=== PATIENT | male | born 1965 | race Caucasian/White ===

== ENCOUNTER 2016-06-06 05:23 | Emergency (ER) | payer MEDICAID ==
[~2016-06-06] VITALS: Ht 170.2 cm; Wt 62.5 kg
[2016-06-06 05:26] VITALS: Ht 170.2 cm; Wt 62.5 kg
[2016-06-06] MEDS ORDERED: KETOROLAC 60 MG INJ IM STA (06:39)
--- NOTE | 2016-06-06 07:16 | RADRPT ---
PROCEDURE: Bilateral shoulder x-rays CLINICAL INDICATION: bilateral shoulder blade pain TECHNIQUE: 3 separate views of each shoulder were obtained including internal rotation, external r otation, and scapular Y-view. COMPARISON: None FINDINGS: Right shoulder: No fracture or dislocation is seen. No lytic or blastic bony lesion. No definite abnormal calcification. No significant degenerative change. Left shoulder: No fracture or dislocation is seen. There are 2 small calcifications seen on the ex ternally rotated view in or adjacent to the rotator cuff insertion site, the larger measuring 2 mm. No lytic or blastic bony lesion is seen. No significant degenerative change. IMPRESSION: Unremarkable right shoulder. No definite acute abnormality of either shoulder. Small calcification s overlying the rotator cuff insertion site on the left which could be due to hydroxyapatite deposit ion disease or prior trauma. Merary Christie Physician Date Time Electronically viewed and signed by Merary Christie Physician on 06/06/2016 07:16 JORGE/
[2016-06-06] MEDS ORDERED: IBUP-1542 PO (07:45)
[2016-06-06] MEDS ORDERED: CYCL-319 PO (07:45)
--- NOTE | 2016-06-06 11:38 | ERD ---
ER Documentation Chief Complaint Date/Time DATE: 06/06/16 TIME: 11:26 Chief Complaint chronic bilateral shoulder pain and right leg pain x 3 years HPI 51-year-old male with a past medical history of gastritis presents to the ED complaining of bilateral shoulder pain and left knee pain that started intermittently 3 years ago. States that the back pain is worse with movement and it radiates down to the left leg. Describes pain as achy and rates it a 8 out of 10. States that he is tried taking Tylenol at home with minimal relief of his pain. 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 Denies any fever, chills, abdominal pain, nausea, vomiting, shortness of breath. Denies any leg swelling, skin irritation. ROS All systems reviewed and are negative except as per history of present illness. Medications Home Meds Active Scripts Cyclobenzaprine Hcl* (Cyclobenzaprine Hcl*) 10 Mg Tablet, 10 MG PO TID, #15 TAB Prov:EDGARDO BROWN PA-C 06/06/16 Ibuprofen* (Motrin*) 600 Mg Tab, 600 MG PO Q6, #30 TAB take with food Prov:EDGARDO BROWN PA-C 06/06/16 Allergies Allergies: Coded Allergies: No Known Allergy (Unverified , 06/06/16) PMhx/Soc Medical and Surgical Hx: pt denies Surgical Hx History of Surgery: No Anesthesia Reaction: No Hx Neurological Disorder: No Hx Respiratory Disorders: No Hx Cardiac Disorders: No Hx Psychiatric Problems: No Hx Miscellaneous Medical Probl: Yes (gastritis ) Hx Alcohol Use: No Hx Substance Use: No Hx Tobacco Use: Yes Smoking Status: Current every day smoker Physical Exam Vitals Vital Signs Date Time Temp Pulse Resp B/P Pulse Ox O2 Delivery O2 Flow Rate FiO2 06/06/16 05:26 97.8 63 20 106/63 100 Physical Exam Const: [id number], well-nourished. In no acute distress. Head: Atraumatic, normocephalic Eyes: Normal Conjunctiva without injection ENT: Normal external ear, nose and mouth. Neck: Full range of motion. No meningismus. Resp: Clear to auscultation bilaterally. No wheezing, rhonchi, rales, or crackles. No accessory muscle use. No retractions. Cardio: Regular rate and rhythm, no murmurs Skin: No petechiae or rashes Back: No midline tenderness. Tenderness to palpation of the left lumbar muscles. No CVA tenderness. Positive straight leg test. Ext: No cyanosis, or edema. Tenderness to palpation of the posterior bilateral scapula. Cap refill less than 2 seconds. Distal pulses intact bilaterally. Neur: Awake and alert. Normal gait and coordination. Muscle strength 5/5. Sensation intact bilaterally. Psych: Normal Mood and Affect Results 24 hrs Current Medications Medications (Trade) Dose Ordered Sig/Kelvin Route PRN Reason Start Time Stop Time Status Last Admin Dose Admin Ketorolac Tromethamine (Toradol) 60 mg ONCE STAT IM 06/06/16 06:39 06/06/16 06:40 DC 06/06/16 06:45 Procedures/MDM This is a 51-year-old male with a past medical history of gastritis presents the ED complaining of bilateral shoulder and left leg pain deriving from his back. Patient is afebrile and nontoxic-appearing. Patient had a positive straight leg test here in the ED. Patient likely has sciatica. 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 PROCEDURE: Bilateral shoulder x-rays CLINICAL INDICATION: bilateral shoulder blade pain TECHNIQUE: 3 separate views of each shoulder were obtained including internal rotation, external rotation, and scapular Y-view. COMPARISON: None FINDINGS: Right shoulder: No fracture or dislocation is seen. No lytic or blastic bony lesion. No definite abnormal calcification. No significant degenerative change. Left shoulder: No fracture or dislocation is seen. There are 2 small calcifications seen on the externally rotated view in or adjacent to the rotator cuff insertion site, the larger measuring 2 mm. No lytic or blastic bony lesion is seen. No significant degenerative change. IMPRESSION: Unremarkable right shoulder. No definite acute abnormality of either shoulder. Small calcifications overlying the rotator cuff insertion site on the left which could be due to hydroxyapatite deposition disease or prior trauma. Patient's extremity symptoms have stabilized while they have been evaluated in the department and are appropriate for outpatient follow up. No evidence of fractures, dislocations, compartment syndrome, neurologic injury, vascular injury, open joint, open fracture, tendon laceration, septic arthritis, osteomyelitis, DVT, foreign body, or other emergent conditions. Patient is ambulating here in the ED without difficulty. Denies saddle anesthesia, numbness or tingling, urine or bowel incontinence, weakness. Low suspicion for cauda equina syndrome, cord compression, nephrolithiasis, aortic aneurysm, aortic dissection, epidural abscess, spinal hematoma, malignancy, pyelonephritis , degenerative disc disease, spinal stenosis, or other emergent conditions. Discharge medications: Flexeril, ibuprofen Follow up with primary care physician in 1-2 days. Instructed patient to return to the ED sooner for any worsening symptoms. Patient's questions were answered. Patient understood and agreed with discharge plan. Patient discharged stable. Departure Diagnosis: Primary Impression: Sciatica Laterality: left Qualified Code: M54.32 - Sciatica of left side Additional Impression: Chronic pain of both shoulders Condition: Stable Patient Instructions: Shoulder Problems, Back Pain W/ Sciatica, Shoulder Pain ( Uncertain Cause) Referrals: [facility] YOU HAVE RECEIVED A MEDICAL SCREENING EXAM AND THE RESULTS INDICATE THAT YOU DO NOT HAVE A CONDITION THAT REQUIRES URGENT TREATMENT IN THE EMERGENCY DEPARTMENT. FURTHER EVALUATION AND TREATMENT OF YOUR CONDITION CAN WAIT UNTIL YOU ARE SEEN IN YOUR DOCTORS OFFICE WITHIN THE NEXT 1-2 DAYS. IT IS YOUR RESPONSIBILITY TO MAKE AN APPOINTMENT FOR FOLOW-UP CARE. IF YOU HAVE A PRIMARY DOCTOR --you should call your primary doctor and schedule an appointment IF YOU DO NOT HAVE A PRIMARY DOCTOR YOU CAN CALL OUR PHYSICIAN REFERRAL HOTLINE AT IF YOU CAN NOT AFFORD TO SEE A PHYSICIAN YOU CAN CHOSE FROM THE FOLLOWING [facility] [address] [facility]. [facility] [address] [facility]. [facility] [address] [facility]. [facility] [address] [facility] [address], [facility]. [facility]. [address] [facility] YOU HAVE RECEIVED A MEDICAL SCREENING EXAM AND THE RESULTS INDICATE THAT YOU DO NOT HAVE A CONDITION THAT REQUIRES URGENT TREATMENT IN THE EMERGENCY DEPARTMENT. FURTHER EVALUATION AND TREATMENT OF YOUR CONDITION CAN WAIT UNTIL YOU ARE SEEN IN YOUR DOCTORS OFFICE WITHIN THE NEXT 1-2 DAYS. IT IS YOUR RESPONSIBILITY TO MAKE AN APPOINTMENT FOR FOLOW-UP CARE. IF YOU HAVE A PRIMARY DOCTOR --you should call your primary doctor and schedule and appointment IF YOU DO NOT HAVE A PRIMARY DOCTOR YOU CAN CALL OUR PHYSICIAN REFERRAL HOTLINE AT . IF YOU CAN NOT AFFORD TO SEE A PHYSICIAN YOU CAN CHOSE FROM THE FOLLOWING [facility], [facility] INSTITUTIONS: [facility] [address] [place] [address] [facility] [address] [place] [address] [facility] [address] [place] [address] [facility] URGENT CARE/SPECIALTIES Additional Instructions: FOLLOW UP WITH YOUR PRIMARY CARE PHYSICIAN TOMORROW. Return to this facility if you are not improving as expected. EDGARDO BROWN PA-C Jun 06, 2016 11:37
== END 2016-06-06 07:50 | disposition home or self-care (01) ==
LOC: FTE 05:23
DX: M54.32 Sciatica, left side (principal); M25.511 Pain in right shoulder; F17.210 Nicotine dependence, cigarettes, uncomplicated
CPT/HCPCS: 73030; J1885; 96372

== ENCOUNTER 2016-06-23 03:24 | Emergency (ER) | payer MEDICAID ==
[~2016-06-23] VITALS: Ht 170.2 cm; Wt 63.8 kg
[~2016-06-23 03:24] MED LIST: CYCL-319 PO; IBUP-1542 PO
[2016-06-23 03:29] VITALS: Ht 170.2 cm; Wt 63.8 kg
[2016-06-23] MEDS ORDERED: HYDROCODONE/APAP (5/325) TAB PO STA (04:46)
[2016-06-23] MEDS ORDERED: ONDANSETRON (ODT) 4 MG TAB ODT STA (04:46)
[2016-06-23] MEDS ORDERED: HYDR-906 PO ×2 (05:09→05:36)
--- NOTE | 2016-06-23 05:09 | ERD ---
ER Documentation Chief Complaint Date/Time DATE: 06/23/16 TIME: 05:07 Chief Complaint lowe back pain x 3 days. states was carrying heavy stuff HPI This is a 51-year-old male presenting to the emergency department complaining of bilateral flank pain that radiates down to his abdomen since last . Patient describes the pain waxing and waning, he states that the pain currently is around moderate severity however it becomes more severe at times. Patient states that the pain was excruciating earlier today and almost made him cry. He describes the pain as inside not in the muscular region or the bone. Patient denies any nausea, vomiting, diarrhea, dysuria or hematuria. He has not taken any medications for this. Patient denies chest pain or shortness of breath ROS All systems reviewed and are negative except as per history of present illness. Medications Home Meds Active Scripts Hydrocodone/Acetaminophen ([place]hee 5-325 Tablet) 1 Each Tablet, 1 TAB PO Q6H Y for PAIN, #20 TAB Prov:LUIS POTTS PA-C 06/23/16 Cyclobenzaprine Hcl* (Cyclobenzaprine Hcl*) 10 Mg Tablet, 10 MG PO TID, #15 TAB Prov:EDGARDO BROWN PA-C 06/06/16 Ibuprofen* (Motrin*) 600 Mg Tab, 600 MG PO Q6, #30 TAB take with food Prov:EDGARDO BROWN PA-C 06/06/16 Allergies Allergies: Coded Allergies: No Known Allergy (Unverified , 06/23/16) PMhx/Soc Medical and Surgical Hx: pt denies Medical Hx, pt denies Surgical Hx History of Surgery: No Anesthesia Reaction: No Hx Neurological Disorder: No Hx Respiratory Disorders: No Hx Cardiac Disorders: No Hx Psychiatric Problems: No Hx Miscellaneous Medical Probl: Yes (gastritis ) Hx Alcohol Use: Yes (occassional) Hx Substance Use: No Hx Tobacco Use: Yes Smoking Status: Current some day smoker Physical Exam Vitals Vital Signs Date Time Temp Pulse Resp B/P Pulse Ox O2 Delivery O2 Flow Rate FiO2 06/23/16 03:29 97.8 57 20 134/72 100 Physical Exam GENERAL: well-developed/well-nourished, in no apparent distress, non-toxic appearing HENT: NC/AT, moist mucous membranes EYES: Conjunctiva normal NECK: Supple, no lymphadenopathy PULM: CTA bilaterally, no rales, rhonchi, or wheezing heard CV: Normal S1S2, RRR, good capillary refill GI: Soft, non-distended, non-tender to palpation Normal bowel sounds, no masses or organomegaly felt on exam No gross peritonitis, no bruits Negative Rovsing, negative Shields, negative McBurney's point, Negative CVAT BACK: No masses, nontender to palpation of the spine midline, nontender in EXT: No clubbing, cyanosis, or edema NEURO: Alert and Orientated SKIN: Intact, normal turgor PSYCH: Normal mood and mentation Result Diagram: 06/23/1610 06/23/16 0510 Results 24 hrs Laboratory Tests Test 06/23/16 05:10 Alanine Aminotransferase (ALT/SGPT) 21IU/L Albumin 4.5g/dl Albumin/Globulin Ratio 1.40 Alkaline Phosphatase 80IU/L Anion Gap 16 Aspartate Amino Transf (AST/SGOT) 22IU/L Basophils # 0.010^3/ul Basophils % 0.2% Blood Urea Nitrogen 14mg/dl Calcium Level 9.4mg/dl Carbon Dioxide Level 33mmol/L Chloride Level 102mmol/L Creatinine 0.80mg/dl Direct Bilirubin 0.00mg/dl Eosinophils # 0.310^3/ul Eosinophils % 4.8% Globulin 3.20g/dl Glucose Level 98mg/dl Hematocrit 42.3% Hemoglobin 14.8g/dl Indirect Bilirubin 0.3mg/dl Lipase 99U/L Lymphocytes # 1.410^3/ul Lymphocytes % 23.3% Mean Corpuscular Hemoglobin 36.3pg Mean Corpuscular Hemoglobin Concent 35.0g/dl Mean Corpuscular Volume 103.7fl Mean Platelet Volume 9.7fl Monocytes # 0.510^3/ul Monocytes % 8.0% Neutrophils # 3.710^3/ul Neutrophils % 63.4% Nucleated Red Blood Cells # 0.010^3/ul Nucleated Red Blood Cells % 0.0/100WBC Platelet Count 18924^3/UL Potassium Level 3.7mmol/L Red Blood Count 4.0810^6/ul Red Cell Distribution Width 12.7% Sodium Level 147mmol/L Total Bilirubin 0.3mg/dl Total Protein 7.7g/dl Urine Bilirubin NEGATIVE Urine Clarity CLEAR Urine Color LT. YELLOW Urine Glucose NEGATIVE% Urine Hemoglobin TRACE Urine Ketones NEGATIVE Urine Leukocyte Esterase NEGATIVE Urine Microscopic RBC 0-2/HPF Urine Microscopic WBC NONE SEEN/HPF Urine Nitrite NEGATIVE Urine Specific Butler 1.020 Urine Total Protein NEGATIVE Urine Urobilinogen 0.2 E.U./dL Urine pH 6.0 White Blood Count 5.910^3/ul Current Medications Medications (Trade) Dose Ordered Sig/Kelvin Route PRN Reason Start Time Stop Time Status Last Admin Dose Admin Acetaminophen/ Hydrocodone Bitart ([place] (5/325)) 2 tab ONCE STAT PO 06/23/16 04:46 06/23/16 04:48 DC 06/23/16 04:56 Ondansetron HCl (Zofran Odt) 4 mg ONCE STAT ODT 06/23/16 04:46 06/23/16 04:48 DC 06/23/16 04:54 Procedures/MDM This is a 51-year-old male presenting to the emergency department complaining of bilateral flank pain that radiates down to his abdomen since last . Patient was evaluated here last week for bilateral shoulder pain and lumbar pain. I believe patient think pain is likely due to a strain and muscle spasm. On examination patient was nontender to palpation in the spine, he was ambulating well. patient was describing the pain as more inside, therefore a CT of the abdomen and pelvis without contrast was done to rule out nephrolithiasis or other acute pathology. The CT was read by radiologist: 1. No CT evidence for obstructive uropathy or renal calculi. 2. Moderately dilated distal esophagus. 3. Retained stool without gross bowel obstruction. 4. No CT evidence for appendicitis. 5. Nonspecific scrotal calcification. 6. Trace pelvic free fluid. I have discussed these findings with the patient, I discussed that he needs to follow-up with a primary care physician on Saturday for the dilated distal esophagitis. Patient denies chest pain or shortness of breath. in the ED patient was given 2 tablets of Oka[place], patient had some relief. Lab work was done, CBC did not show any evidence o significant anemia or leukocytosis. CMP was unremarkable. UA was negative Patient was given a short course of O[place] with strict precautions to follow-up with a primary care physician in on Saturday and to return to the ER for any worsening signs or symptoms. Patient understands and agrees with this plan Departure Diagnosis: Primary Impression: Esophageal dilatation Additional Impression: Lumbar strain Condition: Stable LUIS POTTS PA-C Jun 23, 2016 05:09
[2016-06-23 05:19] LABS: ADD SCAN DIFF NO
[2016-06-23 05:21] LABS: ADD UMIC YES; URINE BILIRUBIN (Dip) NEGATIVE (NEGATIVE); URINE BLOOD (Dip) TRACE (NEGATIVE); URINE COLOR LT. YELLOW (YELLOW); URINE GLUCOSE (Dip) NEGATIVE (NEGATIVE); URINE KETONES (Dip) NEGATIVE (NEGATIVE); URINE LEUKOCYTE ESTERASE (Dip) NEGATIVE (NEGATIVE); URINE NITRITE (Dip) NEGATIVE (NEGATIVE); URINE TOTAL PROTEIN (Dip) NEGATIVE (NEGATIVE); URINE UROBILINOGEN (Dip) 0.2 E.U./dL (0.1-1.0)
[2016-06-23 05:22] LABS: BASOPHILS % 0.2 % (0.0-2.0); EOSINOPHILS # 0.3 10^3/ul (0.0-0.5); EOSINOPHILS % 4.8 % (0.0-7.0); HEMATOCRIT 42.3 % (42.0-52.0); HEMOGLOBIN 14.8 g/dl (14.0-18.0); LYMPHOCYTES # 1.4 10^3/ul (0.8-2.9); LYMPHOCYTES % 23.3 % (15.0-51.0); MEAN CORPUSCULAR HEMOGLOBIN 36.3 pg (29.0-33.0); MEAN CORPUSCULAR VOLUME 103.7 fl (82.0-101.0); MEAN PLATELET VOLUME 9.7 fl (7.4-10.4); MONOCYTE # 0.5 10^3/ul (0.3-0.9); NEUTROPHIL # 3.7 10^3/ul (1.6-7.5); NEUTROPHILS % 63.4 % (39.0-77.0); PLATELET COUNT 207 10^3/UL (140-415); RED BLOOD COUNT 4.08 10^6/ul (4.70-6.10); RED CELL DISTRIBUTION WIDTH 12.7 % (11.5-14.5); WHITE BLOOD COUNT 5.9 10^3/ul (4.8-10.8)
--- NOTE | 2016-06-23 05:25 | RADRPT ---
PROCEDURE: CT ABDOMEN/PELVIS WITHOUT CONTRAST CLINICAL INDICATION: 51-year-old male with bilateral flank pain. TECHNIQUE: The study was performed utilizing a [employer] VCT 64-slice CT scanner. Direct axia l sections were obtained through the abdomen and pelvis without the use of intravenous contrast mate rial. Sagittal and coronal reformations were obtained. Automated exposure control and iterative sarita nstruction techniques were utilized for this examination. The [facility] CTD/vol = 5.0 mGy; Total Exam DLP = 304.5 mGy-cm. COMPARISON: None. FINDINGS: The lung bases are unremarkable. There is no evidence for significant pleural effusion. The liver has a normal size and contour without focal areas of abnormal density. No intrahepatic nor extrahepa tic biliary ductal dilatation is seen. The gallbladder demonstrates no wall thickening nor perichole cystic fluid. No biliary stones are evident. The pancreas is without areas of abnormal attenuation. The spleen is identified and has a normal size without abnormal density. The adrenal glands are unr emarkable. The kidneys are without abnormal density. No hydroureteronephrosis nor nephroureterolithi asis is evident. The urinary bladder contains a small of urine. There is moderate dilatation of the distal esophagus with air-fluid level. There is retained stool within the colon without gross bowel obstruction. The appendix is visualized and is without abnormal thickening or surrounding inflammato ry reaction. The prostate is not enlarged. There is minimal pelvic free fluid. There is a prominent scrotal calcific density measuring 10 x 12 mm on axial image 3-196. The aortoiliac vessels are without aneurysmal dilatation. The osseous structures are intact. IMPRESSION: 1. No CT evidence for obstructive uropathy or renal calculi. 2. Moderately dilated distal esophagus. 3. Retained stool without gross bowel obstruction. 4. No CT evidence for appendicitis. 5. Nonspecific scrotal calcification. 6. Trace pelvic free fluid. .Stewart Valdovinos MD, Date Time Electronically viewed and signed by .Stewart Valdovinos MD, MD on 06/23/2016 05:25 .M/
[2016-06-23 05:36] LABS: URINE RBCS 0-2 /HPF (0)
[2016-06-23 05:45] LABS: ALBUMIN 4.5 g/dl (3.3-4.9)
[2016-06-23 05:46] LABS: POTASSIUM 3.7 mmol/L (3.5-5.1)
[2016-06-23 05:48] LABS: ALBUMIN/GLOBULIN RATIO 1.4; BILIRUBIN,INDIRECT 0.3 mg/dl (0-1.1); BILIRUBIN,TOTAL 0.3 mg/dl (0.2-1.3); CREATININE 0.8 mg/dl (0.61-1.24); TOTAL PROTEIN 7.7 g/dl (6.1-8.1)
[2016-06-23 05:49] LABS: CALCIUM 9.4 mg/dl (8.4-10.2)
[2016-06-23 06:02] VITALS: BP 123/69; PULSE 90; RESP 16
== END 2016-06-23 06:05 | disposition home or self-care (01) ==
LOC: FTE 03:24
DX: K22.8 Other specified diseases of esophagus (principal); S39.012A Strain of muscle, fascia and tendon of lower back, initial encounter; F17.210 Nicotine dependence, cigarettes, uncomplicated; X50.0XXA Overexertion from strenuous movement or load, initial encounter; Y92.9 Unspecified place or not applicable
CPT/HCPCS: 74176; 80053; 81001; 83690; 85025; Z7502; Z7610; 81003

== ENCOUNTER 2016-11-27 09:23 | Emergency (ER) | payer BC, OTHER ==
[~2016-11-27] VITALS: Ht 165.1 cm; Wt 72.0 kg
[~2016-11-27 09:23] MED LIST changes: +HYDR-906 PO
[2016-11-27 09:26] VITALS: Ht 165.1 cm; Wt 72.0 kg
--- NOTE | 2016-11-27 09:38 | ERD ---
ER Documentation Chief Complaint Date/Time DATE: 11/27/16 TIME: 09:37 Chief Complaint RIGHT ELBOW PAIN, FELL FROM LADDER HPI Patient is a 51-year-old male who has right elbow pain and lower back pain after he fell from a ladder landing on his right elbow. He denies any head injury or KO. He is complaining of swelling and pain to the right elbow that is worse with movement. he took something for pain but is not sure what the name of it is. No neck pain. No numbness or tingling. He is ambulatory. No bowel or bladder incontinence. ROS All systems reviewed and are negative except as per history of present illness. Medications Home Meds Active Scripts Ibuprofen* (Motrin*) 800 Mg Tab, 800 MG PO Q6, #30 TAB Prov:SHILO FLOYD PA-C 11/27/16 Hydrocodone/Acetaminophen (Keaton 5-325 Tablet) 1 Each Tablet, 1 TAB PO Q6H Y for PAIN, #20 TAB Prov:SHILO FLOYD PA-C 11/27/16 Hydrocodone/Acetaminophen (Ke[place] 5-325 Tablet) 1 Each Tablet, 1 TAB PO Q6H Y for PAIN, #20 TAB Prov:LUIS POTTS PA-C 06/23/16 Cyclobenzaprine Hcl* (Cyclobenzaprine Hcl*) 10 Mg Tablet, 10 MG PO TID, #15 TAB Prov:EDGARDO BROWN PA-C 06/06/16 Ibuprofen* (Motrin*) 600 Mg Tab, 600 MG PO Q6, #30 TAB take with food Prov:EDGARDO BROWN PA-C 06/06/16 Allergies Allergies: Coded Allergies: No Known Allergy (Unverified , 06/23/16) PMhx/Soc Medical and Surgical Hx: pt denies Medical Hx, pt denies Surgical Hx History of Surgery: No Anesthesia Reaction: No Hx Neurological Disorder: No Hx Respiratory Disorders: No Hx Cardiac Disorders: No Hx Psychiatric Problems: No Hx Miscellaneous Medical Probl: Yes (gastritis ) Hx Alcohol Use: Yes (occassional) Hx Substance Use: No Hx Tobacco Use: Yes Smoking Status: Current every day smoker FmHx Family History: No diabetes Physical Exam Vitals Vital Signs Date Time Temp Pulse Resp B/P Pulse Ox O2 Delivery O2 Flow Rate FiO2 11/27/16 09:26 98.1 60 20 111/58 99 Physical Exam INITIAL VITAL SIGNS: Reviewed by me GENERAL: Awake, alert and oriented x 4, well appearing, nontoxic, speaking in full sentences. No acute distress HEAD: Atraumatic NECK: Supple. No masses. Full range of motion. No meningismus. No midline tenderness. RESPIRATORY: Clear to auscultation bilaterally. Symmetric chest wall rise. No wheezing or rales. No accessory muscle use. CV: Regular rate and rhythm. No murmurs, rubs, or gallops. ABDOMEN: Soft, non-distended. Nontender. Negative Logan. Negative McBurneys point tenderness. No CVA tenderness bilaterally. No guarding. No rebound. EXTREMITIES: No clubbing or cyanosis. No edema. Moving all extremities normally. Posterior right elbow has significant edema and superficial nonbleeding abrasion, limited range of motion in the elbow secondary to pain, no bony abnormalities, sensation to light touch is intact BACK: No midline tenderness to palpation. No step-offs. Sensation to light touch is intact. Ambulatory Results 24 hrs Current Medications Medications (Trade) Dose Ordered Sig/Kelvin Route PRN Reason Start Time Stop Time Status Last Admin Dose Admin Diphtheria/ Tetanus/Acell Pertussis (Adacel) 0.5 ml ONCE ONCE IM* 11/27/16 10:00 11/27/16 10:01 DC 11/27/16 09:41 Acetaminophen/ Hydrocodone Bitart (Ke[place] (5/325)) 1 tab ONCE ONCE PO 11/27/16 10:00 11/27/16 10:01 DC 11/27/16 09:40 Procedures/MDM Patient presents with low back pain and right elbow pain after mechanical fall from ladder. Patients is alert, oriented, well appearing, and in no distress with normal vital signs. There is no fever, tachycardia, or tachypnea. He is neurovascularly intact and ambulatory. He was given Keaton for pain control. He was given a tetanus vaccination. X-rays were ordered. X-ray shows comminuted fractures through the olecranon. Lumbar spine x-ray negative. Patient was placed in a sling and long-arm posterior splint. He was given copy of x-ray and CD with images, he was given prescription for pain medication and outpatient referral to orthopedics. Patient counseled regarding my diagnostic impression and care plan. Prior to discharge all questions answered. Pt agrees with treatment plan and understands strict return precautions. Pt is instructed to follow up with primary care provider within 24-48 hours. Precautionary instructions provided including instructions to return to the ER if not improving or for any worsening or changing symptoms or concerns. Departure Diagnosis: Primary Impression: Elbow fracture Additional Impression: Back pain Condition: Stable SHILO FLOYD PA-C Nov 27, 2016 09:38
[2016-11-27] MEDS ORDERED: HYDROCODONE/APAP (5/325) TAB PO ONE (10:00)
[2016-11-27] MEDS ORDERED: DIPHTH/TET/ACEL PERTUSS (ADULT) 0.5 ML VIAL IM* ONE (10:00)
--- NOTE | 2016-11-27 10:24 | RADRPT ---
PROCEDURE: XR Elbow 2 Views. CLINICAL INDICATION: Elbow pain and trauma. TECHNIQUE: AP and lateral views of the right elbow performed. COMPARISON: None. FINDINGS: Comminuted, mildly displaced fracture through the olecranon is identified. The remaining osseous st ructures appear grossly intact. No destructive bony lesions are observed. Interosseous spaces are grossly preserved. Questionable small joint effusion is observed. Soft tissue swelling is seen ove r the posterior aspect of the elbow. IMPRESSION: Comminuted fracture through the olecranon. Questionable small joint effusion. Soft tissue swelling over the posterior aspect of the elbow. If there is high clinical suspicion for additional traumatic injury, further evaluation with CT shou ld be considered. RPTAT: AA .Binu Busby MD, Date Time Electronically viewed and signed by .Binu Busby MD, MD on 11/27/2016 10:24 .P/
--- NOTE | 2016-11-27 10:25 | RADRPT ---
PROCEDURE: XR Lumbar Spine 2 Views. CLINICAL INDICATION: Low back pain and trauma. TECHNIQUE: Lumbar spine study including AP and lateral views was performed. COMPARISON: No prior studies are available for comparison. FINDINGS: Straightening of the normal lordosis is observed. No fractures or destructive bony lesions are obs erved. Intervertebral disk heights appear normal. Mild anterior osteophytosis is identified from L 3-L5. Facet arthrosis is noted from L4-S1. Soft tissues surrounding the spine appear normal. IMPRESSION: No visualized traumatic injury. Straightening of the normal lordosis. This may be positional in nature. Mild degenerative disk disease from L3-L5. Facet arthrosis in the lower lumbar spine. If there is high clinical suspicion for traumatic injury, further evaluation with CT should be consi dered. RPTAT: AA .Binu Busby MD, Date Time Electronically viewed and signed by .Binu Busby MD, on 11/27/2016 10:25 .P/
[2016-11-27] MEDS ORDERED: HYDR-906 PO (10:27)
[2016-11-27] MEDS ORDERED: IBUP800T25 PO (10:27)
== END 2016-11-27 11:02 | disposition home or self-care (01) ==
LOC: FTE 09:23
DX: S52.021A Displaced fracture of olecranon process without intraarticular extension of right ulna, initial encounter for closed fracture (principal); S39.92XA Unspecified injury of lower back, initial encounter; F17.210 Nicotine dependence, cigarettes, uncomplicated; W11.XXXA Fall on and from ladder, initial encounter; Y92.9 Unspecified place or not applicable; Z23 Encounter for immunization
CPT/HCPCS: 72100; 73070; 90471; 90715